=== PATIENT | male | born 1980 | race Caucasian/White ===

== ENCOUNTER 2024-09-20 12:13 | Emergency (ER) | payer BC, SELFPAY ==
[2024-09-20 12:17] VITALS: BP 131/87
--- NOTE | 2024-09-20 13:25 | ED.GENMED ---
History of Present Illness
<Haley Huerta MD - Last Filed: 09/20/24 16:53>
General
Chief Complaint: Dizziness
Time Seen by Provider: 09/20/24 13:11
<Mabel Washington MD, Resident - Last Filed: 09/21/24 06:22>
General
Source: patient
History of Present Illness
History of Present Illness:
This is a 43 year old male patient with PMH atrial fibrillation s/p ablation and HTN who presents to the ED with concerns of lower back pain and dizziness. He states that for the past few months he has been experiencing lower back pain has been
intermittent and radiation to his lower abdomen associated with dizziness. He denies any fever, chills, post-prandial association, nausea or vomiting. He does admit to not being adherent to his anti-hypertensive regime and stopped his HTN med in March
and restarted last week. He states that taking his antihypertensive medications helps relieve his dizziness. He has regular bowel movements and denies any dysuria.
Past History
<Haley Huerta MD - Last Filed: 09/20/24 16:53>
Past History
ED Past Medical History: Arrthythmia (Paroxysmal atrial fibrillation), HTN, Psychiatric (Overdose) and Other ( PNA)
ED Past Surgical History: Cardiac (Radiofrequency ablation for A. fib 2012, Cardioversion X 2) and Other (Pyloric stenosis)
Social History
Tobacco: Smoker
Alcohol: Daily (wine or beer 3-6)
Drug: None
Personal: Single
Living: with family
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
Family History
Family History: Other (no Significant)
<Mabel Washington MD, Resident - Last Filed: 09/21/24 06:22>
Past History
ED Past Medical History: Arrthythmia (Paroxysmal atrial fibrillation post ablation)
Review of Systems
<Mabel Washington MD, Resident - Last Filed: 09/21/24 06:22>
Review of Systems
Constitutional: Denies fever or chills
Cardiac: Denies chest pain or palpitations
ABD/GI: Reports abdominal pain
: Denies dysuria
Musculoskeletal: Reports back pain
Phy Exam
<Mabel Washington MD, Resident - Last Filed: 09/21/24 06:22>
General Physical Exam
General Presentation: well appearing and no apparent distress
Cardiovascular Exam
Cardiovascular Exam: regular rate/rhythm
Heart Sounds: normal
Pulmonary Exam
Pulmonary Exam: lungs clear
Gastrointestinal Exam
Gastrointestinal Exam: soft, non distended and tender (lower abdominal tenderness)
Neurological Exam
Neurological Exam: oriented x3
Musculoskeletal Exam
Musculoskeletal Exam: no edema
Skin Exam
Skin Exam: warm/dry
Course
<Haley Huerta MD - Last Filed: 09/20/24 16:53>
Orders/Labs/Results
Orders:
Orders
09/20/24 12:50
ECG [Electrocardiogram (*1)] Urgent
Reason for Study: Vertigo / Dizzy
EKG- Treatment ONCE
09/20/24 13:[address] Non Medication Order As Directed
Physician Order: height and weight please
Above order entered?: Yes
09/20/24 13:48
Complete Blood Count/With Diff Urgent
Comprehensive Metabolic Panel Urgent
Urinalysis Reflex To Culture Urgent
Date Specimen was Collected: 09/20/24
Time Specimen was Collected: 13:34
09/20/24 14:59
Troponin I Urgent
Abnormal Lab Results
09/20/24
13:48
MCH 32.1 H pg
(27.0-31.0)
MPV 10.9 H fL
(7.4-10.4)
Monocytes % 10.1 H %
(1.7-9.3)
09/20/24 13:48
09/20/24 13:48
Vital Signs
Initial and Last Documented VS:
Initial Vital Signs
Temp Pulse Resp BP Pulse Ox
97.9 F 89 16 131/87 99
09/20/24 12:17 09/20/24 12:17 09/20/24 12:17 09/20/24 12:17 09/20/24 12:17
Last Documented Vital Signs
Temp Pulse Resp BP Pulse Ox
97.9 F 83 16 170/70 98
09/20/24 12:17 09/20/24 16:31 09/20/24 16:31 09/20/24 16:31 09/20/24 16:31
<Mabel Kae Washington MD, Resident - Last Filed: 09/21/24 06:22>
Orders/Labs/Results
Orders:
Orders
09/20/24 12:50
ECG [Electrocardiogram (*1)] Urgent
Reason for Study: Vertigo / Dizzy
EKG- Treatment ONCE
09/20/24 13:[address] Non Medication Order As Directed
Physician Order: height and weight please
Above order entered?: Yes
09/20/24 13:48
Complete Blood Count/With Diff Urgent
Comprehensive Metabolic Panel Urgent
Urinalysis Reflex To Culture Urgent
Date Specimen was Collected: 09/20/24
Time Specimen was Collected: 13:34
09/20/24 14:59
Troponin I Urgent
Abnormal Lab Results
09/20/24
13:48
MCH 32.1 H pg
(27.0-31.0)
MPV 10.9 H fL
(7.4-10.4)
Monocytes % 10.1 H %
(1.7-9.3)
09/20/24 13:48
09/20/24 13:48
Vital Signs
Initial and Last Documented VS:
Initial Vital Signs
Temp Pulse Resp BP Pulse Ox
97.9 F 89 16 131/87 99
09/20/24 12:17 09/20/24 12:17 09/20/24 12:17 09/20/24 12:17 09/20/24 12:17
Last Documented Vital Signs
Temp Pulse Resp BP Pulse Ox
97.9 F 83 16 170/70 98
09/20/24 12:17 09/20/24 16:31 09/20/24 16:31 09/20/24 16:31 09/20/24 16:31
<Mabel Washington MD, Resident - Last Filed: 09/21/24 06:22>
*Critical Care Note
Total Time (30-74mins, 75-104mins- exclusive of procedures): 31
<Haley Huerta MD - Last Filed: 09/20/24 16:53>
Update Note
Update Note:
CBC/CMP with no significant findings. UA showed
4:30 PM patient states he wants to leave and he does not want to wait for the CAT scan to be done. Patient remains extremely well and comfortable. He denies all abdominal pain at this time. His lab work is normal. His urine shows no sign of
blood or infection. His neurological exam is normal. Therefore, I feel patient can wait to see his primary care doctor for follow-up without getting an emergent CT in the ED.
<Mabel Washington MD, Resident - Last Filed: 09/21/24 06:22>
Update Note
Update Note:
CBC/CMP with no significant findings. UA showed
ED Attending Note
<Haley Huerta MD - Last Filed: 09/20/24 16:53>
ED Attending Note
Patient seen and examined by attending physician: Yes
I performed a history and physical exam of patient and discussed management with resident, I reviewed resident's note and agree with documented findings and plan of care.: Yes
ED Attending Note:
Patient appears extremely well and comfortable. He reports intermittent diffuse abdominal pain and lower back pain for months. Patient denies specific trauma. Currently, he denies any specific abdominal pain. He denies nausea, vomiting and
diarrhea. He denies constipation. Additionally, patient also reports 3 days of dizziness which she states is slightly worse when he changes positions. He denies visual changes. Due to his A-fib, he reports that sometimes he gets worried about
stroke. On exam, patient is breathing comfortably. Lungs are clear. Abdomen is soft and nontender throughout. He has no CVA tenderness. There is no abdominal pulsatile mass. His cranial nerves are equal and symmetric bilaterally. He has
normal [id number]. Due to months of abdominal pain, decision made to do CAT scan of patient's abdomen. Given his history of A-fib and his great concerns for possible stroke and dizziness, decision made to do a CT head. Although, I do not
think patient is having a stroke and he has a normal neurological exam.
-
Portions of this chart may have been created with voice recognition software.� Occasional wrong word or��sound alike� substitutions may have occurred due to the inherent limitations of voice recognition software.
Discharge Plan
Departure
Patient Disposition: Home (Routine Discharge)
Date of Disposition: 09/20/24
Time of Disposition: 16:18
Patient with high blood pressure during this ER visit?: Yes
Condition: Good
Covid-19: Not Applicable
Discharge Problem:
Dizziness, Abdominal pain
Instructions: Abdominal pain in adults - Discharge instructions, Dizziness, BLOOD PRESSURE
Prescriptions:
No Action
metoprolol succinate 25 mg Tablet Extended Release 24 Hr
25 mg PO BID
Xarelto 20 mg Tablet
20 mg PO QPM
meclizine 25 mg Tablet
25 mg PO Q8HPRN PRN (Reason: dizziness) Qty: 14 0RF
amlodipine 10 mg Tablet
10 mg PO DAILY Qty: 30 0RF
Activity Restrictions/Additional Instructions:
Please follow-up with your doctor within 1 week. Return with any vision changes or fever
Interventions
Interventions:
*Risk Screen - Suicide Last Done: 09/20/24 16:31
*General Assessment Last Done: 09/20/24 12:40
*Neglect/Abuse Screening Last Done: 09/20/24 16:31
ED- Fall Risk Assessment Last Done: 09/20/24 12:40
*Nursing Disposition Last Done: 09/20/24 16:31
ED- Cardiac Assessment Last Done: 09/20/24 12:40
ED- Neurological Assessment Last Done: 09/20/24 12:40
Discharge Date and Time
Discharge Date/Time: 09/20/24 17:17
Print Language: BARBADIAN
[2024-09-20 13:59] VITALS: BMI 26.5
[2024-09-20 14:04] VITALS: BP 174/76
[2024-09-20 14:11] LABS: % Basophils 0.9 % (0-2); % Eosinophils 2.1 % (0-6); % Immature Granulocytes 0.5 % (0-0.5); % Lymphocytes 25.8 % (20.5-51.1); % Monocytes 10.1 % (1.7-9.3); % Neutrophils 60.6 % (42.2-75.2); Absolute Basophils 0.1 10^3/uL (0-0.2); Absolute Eosinophils 0.1 10^3/uL (0-0.7); Absolute Lymphocytes 1.5 10^3/uL (1.2-3.4); Absolute Monocytes 0.6 10^3/uL (0.1-0.6); Absolute Neutrophils 3.5 10^3/uL (1.4-6.5); Hematocrit 41.5 % (39.0-52.0); Hemoglobin 15.2 g/dL (13.0-18.0); Mean Corp Hgb Conc. 36.6 g/dL (33.0-37.0); Mean Corpuscular Hgb 32.1 pg (27.0-31.0); Mean Corpuscular Volume 87.7 fL (80.0-94.0); Mean Platelet Volume 10.9 fL (7.4-10.4); Nucleated Red Blood Cells % 0 % (-); Platelet Count 191 10^3/uL (130-400); Red Blood Cell Count 4.73 10^6/uL (4.70-6.10); White Blood Cell Count 5.7 10^3/uL (4.8-10.8)
[2024-09-20 14:29] LABS: ALT (SGPT) 30 U/L (0-50); AST (SGOT) 31 U/L (17-59); Albumin 4.4 g/dl (3.5-5.0); Alkaline Phosphatase 68 U/L (38-126); Blood Urea Nitrogen 13 mg/dl (9-20); Calcium 9.3 mg/dl (8.4-10.2); Carbon Dioxide 25 mmol/L (22-30); Chloride 101 mmol/L (98-107); Estimated Creatinine Clearance > 125 ml/min; Glucose 91 mg/dl (70-99); Potassium 4.5 mmol/L (3.5-5.1); Sodium 139 mmol/L (135-145); Total Bilirubin 0.5 mg/dl (0.2-1.3); Total Protein 6.8 g/dl (6.3-8.2); eGFR > 60.00
[2024-09-20 15:01] LABS: Urine Albumin Negative (Neg - Trace); Urine Bilirubin Negative (Negative); Urine Character Clear (Clear); Urine Color Yellow; Urine Glucose Negative (Negative); Urine Ketone Negative (Negative); Urine Leukocyte Negative (Negative); Urine Nitrite Negative (Negative); Urine Occult Blood Negative (Negative); Urine Specific Gravity 1.005 (<1.030); Urine Urobilinogen Negative (Neg - 1+)
[2024-09-20 15:42] LABS: Troponin I < 0.012 ng/ml
[2024-09-20 16:31] VITALS: BP 170/70
== END 2024-09-20 17:17 | disposition home or self-care (01) ==
LOC: EMR 12:13
PROVIDERS: EMERGENCY PHYSICIAN Emergency Medicine
DX: R42 Dizziness and giddiness (principal); R10.84 Generalized abdominal pain; M54.50 Low back pain, unspecified; I10 Essential (primary) hypertension; I48.0 Paroxysmal atrial fibrillation; F17.200 Nicotine dependence, unspecified, uncomplicated
CPT/HCPCS: 99284; 80053; 81003; 84484; 85025; 93005

== ENCOUNTER 2024-12-01 14:14 | Emergency (ER) | payer BC, SELFPAY ==
[2024-12-01 14:15] VITALS: BP 133/94
--- NOTE | 2024-12-01 14:21 | ED.GENMED ---
ED Provider Triage
<Lalo Montes PA-C - Last Filed: 12/01/24 14:22>
-
Patient seen by provider in Triage?: Seen in Triage
Attestation: A medical screening examination has been initiated by a qualified medical provider. Based on the assessment performed at this time, it has been determined that an emergent medical condition may exist and the patient has been informed
that further medical evaluation and possible additional diagnostic testing may be needed.
HPI: 44-year-old male presenting emergency department for evaluation of lower abdominal pain and bilateral lower back pain that has been ongoing for approximately 1 year. Pain waxes and wanes. Today worse than normal. Patient has been in this
emergency department before for similar but states today was worse. No fevers or infectious symptoms. Did not take anything for symptoms. No recent abdominal imaging. Labs and CT imaging ordered. Patient otherwise in no acute distress.
GENERAL: Alert , in no apparent distress
EYE: No visual abnormalities.
NECK: Trachea midline
ENT: No visible abnormalities.
LUNGS: No acute respiratory distress
NEUROLOGICAL: Alert and oriented
SKIN: Skin intact. No visible changes.
MUSCULOSKELETAL: Moving extremities normally
PSYCH: Normal and appropriate interaction.
This is a medical evaluation conducted in person to initiate diagnostic evaluation and provide initial therapeutics. Please see further documentation by the treating clinician.
History of Present Illness
<Lalo Montes PA-C - Last Filed: 12/01/24 14:22>
General
Chief Complaint: Abdominal Pain
Time Seen by Provider: 12/01/24 18:14
<Kinsey Winston PA-C - Last Filed: 12/01/24 20:00>
General
Source: patient
Exam Limitations: none
Nursing documentation reviewed up to this point in time: agreed with
History of Present Illness
History of Present Illness:
44-year-old male with a past medical history of A-fib on Xarelto, hypertension, tobacco and alcohol use disorder presents emergency department today with concerns of bilateral lower abdominal pain. Patient reports that this started around a year
ago but states that today the pain got worse and states that it woke him up in the middle of the night. Patient reports that he experiences this pain every day and it is usually constant, tends to improve with movement and walking around and tends
to get worse at night. He also has associated intermittent nausea. He also notes diarrhea after most meals. He denies fevers/chills, denies radiation of the pain into the epigastrium/chest. He also notes associated low back pain. Patient states
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 He denies hematuria, dysuria, fainting spells. Notes that occasionally pain will radiate into the groin. Denies testicular pain. Denies direct trauma to the back or abdomen.
Past History
<Lalo Montes PA-C - Last Filed: 12/01/24 14:22>
Past History
ED Past Medical History: Arrthythmia (Paroxysmal atrial fibrillation post ablation), HTN, Psychiatric (Overdose) and Other ( PNA)
ED Past Surgical History: Cardiac (Radiofrequency ablation for A. fib 2012, Cardioversion X 2) and Other (Pyloric stenosis)
Social History
Tobacco: Smoker
Alcohol: Daily (wine or beer 3-6)
Drug: None
Personal: Single
Living: with family
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
Family History
Family History: Other (no Significant)
Review of Systems
<Kinsey Winston PA-C - Last Filed: 12/01/24 20:00>
Review of Systems
All Other Systems: ROS reviewed and negative except as documented in HPI and ROS
Phy Exam
<Kinsey Winston PA-C - Last Filed: 12/01/24 20:00>
Physical Exam
Physical Exam:
General: Patient is well appearing and in no acute distress; non-toxic
Skin: Warm and dry, no rashes or lesions
Head: Normocephalic, atraumatic
Eyes: Sclera non-icteric. EOMs intact. PERRLA.
Cardiac: Regular rate and rhythm, no murmurs
Peripheral Vascular: No lower extremity swelling or edema
Pulm: Normal respiratory effort, no wheezing
Abdomen: No abdominal tenderness to palpation, no guarding, no rebound tenderness. No palpable abdominal masses.
Musculoskeletal: Mild paraspinal tenderness of the lumbar spine, no palpable bony deformities
Neuro: CN II-XII intact, no focal neurologic deficits.
Psychiatric: Appropriate mood and affect.
Course
<Lalo Montes PA-C - Last Filed: 12/01/24 14:22>
Orders/Labs/Results
Orders:
Orders
12/01/24 14:20
CT Abd/pelvis W Iv Cont Urgent
Comment:
Reason For Exam: generalized lower abd/back pain
12/01/24 14:27
Complete Blood Count/With Diff Urgent
Comprehensive Metabolic Panel Urgent
Lipase Urgent
Urinalysis Reflex To Culture Urgent
Date Specimen was Collected: 12/01/24
Time Specimen was Collected: 14:26
Abnormal Lab Results
12/01/24
14:27
MPV 10.6 H fL
(7.4-10.4)
12/01/24 14:27
12/01/24 14:27
Vital Signs
Initial and Last Documented VS:
Initial Vital Signs
Temp Pulse Resp BP Pulse Ox
98.7 F 90 16 133/94 99
12/01/24 14:15 12/01/24 14:15 12/01/24 14:15 12/01/24 14:15 12/01/24 14:15
Last Documented Vital Signs
Temp Pulse Resp BP Pulse Ox
98.3 F 86 18 118/78 100
12/01/24 16:13 12/01/24 16:13 12/01/24 16:13 12/01/24 16:13 12/01/24 16:13
<Kinsey Winston PA-C - Last Filed: 12/01/24 20:00>
Orders/Labs/Results
Orders:
Orders
12/01/24 14:20
CT Abd/pelvis W Iv Cont Urgent
Comment:
Reason For Exam: generalized lower abd/back pain
12/01/24 14:27
Complete Blood Count/With Diff Urgent
Comprehensive Metabolic Panel Urgent
Lipase Urgent
Urinalysis Reflex To Culture Urgent
Date Specimen was Collected: 12/01/24
Time Specimen was Collected: 14:26
Abnormal Lab Results
12/01/24
14:27
MPV 10.6 H fL
(7.4-10.4)
12/01/24 14:27
12/01/24 14:27
Vital Signs
Initial and Last Documented VS:
Initial Vital Signs
Temp Pulse Resp BP Pulse Ox
98.7 F 90 16 133/94 99
12/01/24 14:15 12/01/24 14:15 12/01/24 14:15 12/01/24 14:15 12/01/24 14:15
Last Documented Vital Signs
Temp Pulse Resp BP Pulse Ox
98.3 F 86 18 118/78 100
12/01/24 16:13 12/01/24 16:13 12/01/24 16:13 12/01/24 16:13 12/01/24 16:13
<Maurisio Adan DO - Last Filed: 12/01/24 23:59>
Orders/Labs/Results
Orders:
Orders
12/01/24 14:20
CT Abd/pelvis W Iv Cont Urgent
Comment:
Reason For Exam: generalized lower abd/back pain
12/01/24 14:27
Complete Blood Count/With Diff Urgent
Comprehensive Metabolic Panel Urgent
Lipase Urgent
Urinalysis Reflex To Culture Urgent
Date Specimen was Collected: 12/01/24
Time Specimen was Collected: 14:26
Abnormal Lab Results
12/01/24
14:27
MPV 10.6 H fL
(7.4-10.4)
12/01/24 14:27
12/01/24 14:27
Vital Signs
Initial and Last Documented VS:
Initial Vital Signs
Temp Pulse Resp BP Pulse Ox
98.7 F 90 16 133/94 99
12/01/24 14:15 12/01/24 14:15 12/01/24 14:15 12/01/24 14:15 12/01/24 14:15
Last Documented Vital Signs
Temp Pulse Resp BP Pulse Ox
98.3 F 86 18 118/78 100
12/01/24 16:13 12/01/24 16:13 12/01/24 16:13 12/01/24 16:13 12/01/24 16:13
[place];Kinsey Winston PA-C - Last Filed: 12/01/24 20:00>
MDM/Problems Addressed
Differential Diagnosis Includes:
diverticulitis, inguinal hernia, IBS, celiac disease, acute cystitis, pyelonephritis, abdominal wall strain
MDM/Problems Addressed:
44 y/o male with pmh HTN, afib on xarelto, htn comes to the ER with multiple months to a year of bilateral lower abdominal pain and low back pain. Patient states that the pain tends relieved with movement. The pain is worse at night. On physical
exam, he is well-appearing in no acute distress he is afebrile, his heart is regular rate and rhythm, he has no palpable abdominal tenderness to palpation, no distension. Urinalysis shows no evidence of infection. Etiology to abdominal pain unclear
at this time. Suspect musculoskeletal etiology to patient's back pain in light of patient's line of work/overuse injury in addition to degenerative changes noted on CT. In light of patient's associated diarrhea and family hx of GI disease, I
recommended evaluation by gastroenterology, referral provided. Patient stable for discharge, return precautions discussed.
Chronic conditions affecting care:
afib, htn, hlp
<Kinsey Winston PA-C - Last Filed: 12/01/24 20:00>
*Pulse Oximetry
Patient hypoxic: no
*Critical Care Note
Total Time (30-74mins, 75-104mins- exclusive of procedures): Not Applicable
Data Reviewed
Review of Other/Old Records Reveals: Records (Reviewed ER physician documentation from abdominal pain on 09/20/2024 patient seen for)
<Kinsey Winston PA-C - Last Filed: 12/01/24 20:00>
Patient Management
Escalation/DeEscalation of care consider admission/obs:
Admit not indicated, patient stable for discharge
ED Attending Note
<Lalo Montes PA-C - Last Filed: 12/01/24 14:22>
-
Portions of this chart may have been created with voice recognition software.� Occasional wrong word or��sound alike� substitutions may have occurred due to the inherent limitations of voice recognition software.
<Maurisio Adan DO - Last Filed: 12/01/24 23:59>
ED Attending Note
Patient seen and examined by attending physician: Yes
I performed the substantive portion of visit, reviewed & personally made and approve the management plan that is documented in note by myself or VINH.: Yes
ED Attending Note:
41-year-old male with essentially chronic low abdominal and low back pain. Patient admits has been ongoing for a year but has not had follow-up. Labs and CT unremarkable. Okay for discharge. Recommended outpatient GI follow-up. Also recommended
PCP follow-up
Discharge Plan
Departure
Patient Disposition: Home (Routine Discharge)
Date of Disposition: 12/01/24
Time of Disposition: 19:39
Patient with high blood pressure during this ER visit?: Yes
Condition: Good
Discharge Problem:
Abdominal pain, Back pain
Instructions: Back Pain, Abdominal Pain, BLOOD PRESSURE
Prescriptions:
No Action
metoprolol succinate 25 mg Tablet Extended Release 24 Hr
25 mg PO BID
Xarelto 20 mg Tablet
20 mg PO QPM
meclizine 25 mg Tablet
25 mg PO Q8HPRN PRN (Reason: dizziness) Qty: 14 0RF
amlodipine 10 mg Tablet
10 mg PO DAILY Qty: 30 0RF
Referrals:
Iris Villafana MD [Family Provider] -
Brady Dumont DO [Active] - Call in 1-3 days for appt
Activity Restrictions/Additional Instructions:
Your CBC and CMP blood work is unremarkable. Urinalysis does not show any signs of infection.
Please call these attached number to schedule appointment to see gastroenterology for additional workup and evaluation.
PLEASE RETURN EMERGENCY DEPARTMENT SHOULD YOU EXPERIENCE CHEST PAIN, LIGHTHEADEDNESS, FAINTING SPELLS, RECTAL BLEEDING, VOMITING BLOOD, INTRACTABLE NAUSEA OR VOMITING, OR ANY OTHER SIGNS OR SYMPTOMS CONCERNING TO YOU.
Interventions
Interventions:
*Risk Screen - Suicide Last Done: 12/01/24 14:15
*General Assessment Last Done: 12/01/24 14:15
*Neglect/Abuse Screening Last Done: 12/01/24 14:15
*ED COVID-19 Vaccine History Last Done: 12/01/24 14:15
*Nursing Disposition Last Done: 12/01/24 20:08
Discharge Date and Time
Discharge Date/Time: 12/01/24 20:08
Print Language: RWANDAN
[2024-12-01 14:34] LABS: Urine Albumin Negative (Neg - Trace); Urine Bilirubin Negative (Negative); Urine Character Clear (Clear); Urine Color Yellow; Urine Glucose Negative (Negative); Urine Ketone Negative (Negative); Urine Leukocyte Negative (Negative); Urine Nitrite Negative (Negative); Urine Occult Blood Negative (Negative); Urine Specific Gravity 1.015 (<1.030); Urine Urobilinogen Negative (Neg - 1+)
[2024-12-01 14:36] LABS: % Basophils 0.8 % (0-2); % Immature Granulocytes 0.5 % (0-0.5); % Lymphocytes 25.8 % (20.5-51.1); % Monocytes 9.1 % (1.7-9.3); % Neutrophils 61.8 % (42.2-75.2); Absolute Basophils 0.1 10^3/uL (0-0.2); Absolute Eosinophils 0.1 10^3/uL (0-0.7); Absolute Lymphocytes 1.5 10^3/uL (1.2-3.4); Absolute Monocytes 0.5 10^3/uL (0.1-0.6); Absolute Neutrophils 3.7 10^3/uL (1.4-6.5); Hemoglobin 14.5 g/dL (13.0-18.0); Mean Corp Hgb Conc. 35.4 g/dL (33.0-37.0); Mean Corpuscular Hgb 30.8 pg (27.0-31.0); Mean Platelet Volume 10.6 fL (7.4-10.4); Nucleated Red Blood Cells % 0 % (-); Platelet Count 199 10^3/uL (130-400); Red Blood Cell Count 4.71 10^6/uL (4.70-6.10); Red Cell Dist. Width 11.9 % (11.5-14.5); White Blood Cell Count 5.9 10^3/uL (4.8-10.8)
[2024-12-01 14:49] LABS: ALT (SGPT) 38 U/L (0-50); AST (SGOT) 28 U/L (17-59); Albumin 4.4 g/dl (3.5-5.0); Alkaline Phosphatase 71 U/L (38-126); Blood Urea Nitrogen 13 mg/dl (9-20); Calcium 8.9 mg/dl (8.4-10.2); Carbon Dioxide 27 mmol/L (22-30); Chloride 101 mmol/L (98-107); Glucose 90 mg/dl (70-99); Lipase 131 U/L (23-300); Sodium 136 mmol/L (135-145); Total Bilirubin 0.3 mg/dl (0.2-1.3); Total Protein 6.7 g/dl (6.3-8.2); eGFR > 60.00
[2024-12-01 16:13] VITALS: BP 118/78
== END 2024-12-01 20:08 | disposition home or self-care (01) ==
LOC: EMR 14:14
PROVIDERS: Physician Assistant Medical; EMERGENCY PHYSICIAN Emergency Medicine; FAMILY PHYSICIAN Family Medicine
DX: R10.30 Lower abdominal pain, unspecified (principal); M54.50 Low back pain, unspecified; R19.7 Diarrhea, unspecified; I48.0 Paroxysmal atrial fibrillation; I10 Essential (primary) hypertension; E78.5 Hyperlipidemia, unspecified; F17.200 Nicotine dependence, unspecified, uncomplicated; Z79.01 Long term (current) use of anticoagulants
CPT/HCPCS: 99284; 74177; 80053; 81003; 83690; 85025; Q9967

== ENCOUNTER 2025-09-14 22:30 | Emergency (ER) | payer BC, SELFPAY ==
[2025-09-14 22:37] VITALS: BP 134/88
[2025-09-14 23:27] VITALS: BMI 25.3
--- NOTE | 2025-09-15 00:04 | ED.GENMED ---
History of Present Illness
General
Chief Complaint: Cardiac Symptoms
Source: patient and previous hospital records
Exam Limitations: none
Time Seen by Provider: 09/14/25 23:50
Nursing documentation reviewed up to this point in time: agreed with
History of Present Illness
History of Present Illness:
The patient is a 44-year-old male with a history of atrial fibrillation, and anxiety, presenting with symptoms of anxiety and intermittent palpitations over the past couple of weeks. The symptoms have been distressing, described by the patient as
�glitches in the system� with �hard hits, like a pause now and then,� which exacerbate his anxiety, potentially contributing to post-traumatic stress disorder (PTSD). The patient saw his PCP on Friday, Rx Buspar as well as Alprazolam. He picked
these up today and took a dose of alprazolam at around 6 PM. He has not started Buspar yet.
he reports no prior tx for anxiety in the past.
He has prior history of alcohol abuse, the patient reports abstinence from alcohol for the past 30 days. He denies drug use.
The patient has a history of atrial fibrillation, most recently in 2022, and has undergone an ablation 2011 as well as December 2022. He was previously on Rivaroxaban and Metoprolol as well as amlodipine, which have been discontinued following the
ablation. The patient is currently on Lisinopril for hypertension. No current episodes of atrial fibrillation noted on intake; however, an electrocardiogram revealed sinus tachycardia.
He admits that current intermittent palpitations feel different than his previous episodes of A-fib.
He denies cough no shortness of breath. No dizziness or lightheadedness. No leg pain or swelling. No fever no chills no URI symptoms, no leg pain or swelling.
He has been exercising on a regular basis without symptomatology.
Reports 15 pound intentional weight loss since November.
Past History
Past History
ED Past Medical History: Arrthythmia (Paroxysmal atrial fibrillation post ablation), HTN, Psychiatric (Overdose) and Other ( PNA)
ED Past Surgical History: Cardiac (Radiofrequency ablation for A. fib 2011, and again December 2022 cardioversion X 2) and Other (Pyloric stenosis)
Social History
Tobacco: Smoker
Alcohol: Daily (wine or beer 3-6: quit alcohol August 2025)
Drug: None
Personal: Single
Living: with family
Employment: Employed ([employer]er)
Family History
Family History: Other (no Significant)
Phy Exam
Physical Exam
Physical Exam:
GENERAL: 44-year-old gentleman appears his stated age, awake and alert, pleasant, mildly anxious, easily communicative. His son and daughter are accompanying.
EYE: pupils equal and reactive. anicteric
NECK: Supple, nontender, no meningismus, no significant adenopathy. No JVD.
ENT: oral mucosa is moist. No rhinorrhea.
CARDIAC: Regular rate and rhythm. no murmur.
LUNGS: Clear breath sounds bilaterally, no acute respiratory distress, no wheezes/rales/rhonchi
ABDOMEN: Soft, nondistended, without focal tenderness
NEUROLOGICAL: Alert and oriented x3, no focal neuro deficits. Gait is steady.
SKIN: Warm and dry, normal color, skin intact. No rash.
MUSCULOSKELETAL: No C/C/E. peripheral pulses are full and equal b/l. No palpable tenderness.
PSYCH: Mildly anxious. Easily communicative.
Course
Orders/Labs/Results
Orders:
Orders
09/14/25 22:30
ECG [Electrocardiogram (*1)] Urgent
Reason for Study: Chest Pain
09/14/25 22:31
EKG- Treatment ONCE
09/14/25 23:54
Alcohol Urgent
Complete Blood Count/With Diff Urgent
Comprehensive Metabolic Panel Urgent
NT-proBNP Urgent
TSH Reflex To Free T4 Urgent
Troponin I Urgent
09/15/25 00:21
Lorazepam [Ativan] 1 mg PO NOW STA
09/15/25 01:51
Electrocardiogram (*1) Urgent
Reason for Study: Chest Pain
EKG- Treatment ONCE
Potassium Chloride [KCl] 40 meq PO NOW STA
09/15/25 01:58
Troponin I Urgent
09/15/25 03:03
Lorazepam [Ativan] 1 mg .ROUTE .STK-MED ONE
Abnormal Lab Results
09/15/25
00:08
WBC 4.5 L 10^3/uL
(4.8-10.8)
RBC 4.41 L 10^6/uL
(4.70-6.10)
MCH 31.7 H pg
(27.0-31.0)
MPV 11.2 H fL
(7.4-10.4)
Monocytes % 11.8 H %
(1.7-9.3)
Sodium 130 L mmol/L
(135-145)
Potassium 3.1 L mmol/L
(3.5-5.1)
Carbon Dioxide 21 L mmol/L
(22-30)
09/15/25 00:08
09/15/25 00:08
Vital Signs
Initial and Last Documented VS:
Initial Vital Signs
Temp Pulse Resp BP Pulse Ox
98.2 F 130 20 134/88 99
09/14/25 22:37 09/14/25 22:37 09/14/25 22:37 09/14/25 22:37 09/14/25 22:37
Last Documented Vital Signs
Temp Pulse Resp BP Pulse Ox
98.2 F 77 17 134/88 97
09/14/25 22:37 09/15/25 02:45 09/15/25 02:45 09/14/25 22:37 09/15/25 02:45
MDM/Problems Addressed
Differential Diagnosis Includes:
The Differential Diagnosis includes, in no particular order and is not limited to:
1. Generalized Anxiety Disorder
2. Post-Traumatic Stress Disorder
3. Atrial Fibrillation
4. Hyperthyroidism
5. Panic Disorder
6. Mitral Valve Prolapse
7. Substance-Induced Anxiety Disorder
8. Underlying Cardiac Arrhythmia
9. Acute Stress Reaction
10. Secondary Hypertension
MDM/Problems Addressed:
Generalized anxiety symptoms, ongoing over the past several weeks with intermittent palpitations
Initial EKG shows sinus tachycardia at 140, otherwise no acute ST-T wave abnormalities.
court recording monitor shows normal sinus rhythm in the 70s.
Will check labs including troponin, thyroid functions.
No prior history of thromboembolism, no complaints of chest pain or shortness of breath and has been exercising on a regular basis without symptomatology thus PE is unlikely.
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
Chronic conditions affecting care: HTN and Arrhythmia (History of paroxysmal atrial fibrillation)
*Pulse Oximetry
SaO2: 98
Oxygen Mode of Delivery: Room air
Patient hypoxic: no
*EKG
Interpreted by ED Provider?: Yes
Interpretation: abnormal
Comparison EKG: changes noted (Sinus tachycardia is new compared to previous EKG showing normal sinus rhythm)
Rate: tachycardiac
Rhythm: sinus
[place]: normal axis
Interval: normal interval
QRS Pattern: normal QRS
Ischemia: no ischemia
*Airplane Cleaner Interpretation
Rate: normal
Interpretation: normal
Rhythm: sinus
*Critical Care Note
Total Time (30-74mins, 75-104mins- exclusive of procedures): Not Applicable
Update Note
Update Note:
01:57
Monitor continues to show normal sinus rhythm 70s to 80s.
Labs reveal very mild hyponatremia, mild hypokalemia. Normal TSH. Normal BNP. Troponin 0.019.
Overall patient resting comfortably.
Will plan to repeat EKG and repeat troponin.
Will replete potassium orally.
Patient believes tachycardia is related to a panic attack. Must however consider that intermittent tachyarrhythmia, sinus tachycardia may be then leading to anxiety/panic episodes.
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 Lopez but admits that he has neglected follow-up for quite some time.
02:45
Repeat EKG shows normal sinus rhythm, no acute ST-T wave abnormalities, overall similar and unchanged from previous EKG September 2024.
Repeat troponin remains unchanged.
Will discharge to home with recommendations he follow-up with his PCP as well as his pipe crew foreman, Dr. Lopez.
Return precautions discussed.
ED Attending Note
-
Portions of this chart may have been created with voice recognition software.� Occasional wrong word or��sound alike� substitutions may have occurred due to the inherent limitations of voice recognition software.
Discharge Plan
Departure
Patient Disposition: Home (Routine Discharge)
Date of Disposition: 09/15/25
Time of Disposition: 02:49
Patient with high blood pressure during this ER visit?: No
Condition: Good
Discharge Problem:
Inappropriate sinus tachycardia, Generalized anxiety disorder with panic attacks
Instructions: Generalized anxiety disorder, Tachycardia
Prescriptions:
No Action
metoprolol succinate 25 mg Tablet Extended Release 24 Hr
25 mg PO BID
Xarelto 20 mg Tablet
20 mg PO QPM
meclizine 25 mg Tablet
25 mg PO Q8HPRN PRN (Reason: dizziness) Qty: 14 0RF
amlodipine 10 mg Tablet
10 mg PO DAILY Qty: 30 0RF
Referrals:
Rodriguez Lopez MD [Active, Cardiology] - Call in 1-3 days for appt
Iris Villafana MD [Family Provider, Family Practice] - Call in 1-3 days for appt
Interventions
Interventions:
*General Assessment Last Done: 09/14/25 22:37
*Neglect/Abuse Screening Last Done: 09/14/25 23:27
*ED- Fall Risk Assessment Last Done: 09/14/25 23:27
*ED COVID-19 Vaccine History Last Done: 09/14/25 23:27
*ED Influenza Vaccine History Last Done: 09/14/25 23:27
*Nursing Disposition Last Done: 09/15/25 03:05
ED- Pulmonary Assessment Last Done: 09/14/25 23:27
ED- Cardiac Assessment Last Done: 09/14/25 23:27
Discharge Date and Time
Discharge Date/Time: 09/15/25 03:05
Print Language: SYRIAC
[2025-09-15 00:21] LABS: Hematocrit 40.1 % (39.0-52.0); Hemoglobin 14.0 g/dL (13.0-18.0); Mean Corp Hgb Conc. 34.9 g/dL (33.0-37.0); Mean Corpuscular Volume 90.9 fL (80.0-94.0); Nucleated Red Blood Cells % 0 % (-); Platelet Count 199 10^3/uL (130-400); Red Cell Dist. Width 11.6 % (11.5-14.5)
[2025-09-15 00:32] LABS: ALT (SGPT) 25 U/L (0-50); AST (SGOT) 26 U/L (17-59); Albumin 4.3 g/dl (3.5-5.0); Alkaline Phosphatase 61 U/L (38-126); Blood Urea Nitrogen 13 mg/dl (9-20); Calcium 9.2 mg/dl (8.4-10.2); Carbon Dioxide 21 mmol/L (22-30); Chloride 99 mmol/L (98-107); Estimated Creatinine Clearance 113 ml/min; Glucose 91 mg/dl (70-99); Potassium 3.1 mmol/L (3.5-5.1); Sodium 130 mmol/L (135-145); Total Protein 6.5 g/dl (6.3-8.2); eGFR > 60.00
[2025-09-15 00:42] LABS: Troponin I 0.019 ng/ml
[2025-09-15] MEDS: ATIVAN PO (01:55)
[2025-09-15] MEDS: KCL 40 MEQ PO (01:56)
[2025-09-15 02:34] LABS: Troponin I 0.018 ng/ml
[2025-09-15] MEDS: ATIVAN 1 MG PO (03:04)
== END 2025-09-15 03:05 | disposition home or self-care (01) ==
LOC: EMR 22:30
PROVIDERS: EMERGENCY PHYSICIAN Emergency Medicine; FAMILY PHYSICIAN Family Medicine
DX: I47.11 Inappropriate sinus tachycardia, so stated (principal); F41.1 Generalized anxiety disorder; F41.0 Panic disorder [episodic paroxysmal anxiety]; E87.1 Hypo-osmolality and hyponatremia; E87.6 Hypokalemia; I48.0 Paroxysmal atrial fibrillation; I10 Essential (primary) hypertension; F17.200 Nicotine dependence, unspecified, uncomplicated
CPT/HCPCS: 99284; 80053; 82077; 83880; 84443; 84484; 85025; 93005